=== PATIENT | female | born 2000 | race Caucasian/White ===

== ENCOUNTER 2018-09-08 18:00 | Emergency (ER) | payer BC ==
[~2018-09-08] VITALS: Ht 172.7 cm; Wt 95.3 kg
[2018-09-08 18:51] VITALS: BP 141/97
--- NOTE | 2018-09-08 20:07 | RAD ---
Left breast ultrasound: Reason for examination: Lateral left breast pain extending into the axilla. Left whole breast ultrasound including evaluation of all 4 quadrants and the retroareolar and axillary regions of the left breast was performed. No cystic or solid nodules are seen. In the area of clinical concern laterally there was no focal abnormality evident. No abnormal appearing lymph nodes are seen in the axilla. IMPRESSION: No focal abnormalities evident in the left breast. BI-RADS Category 1: Negative. "Our facility is accredited by the [employer] Mammography [employer]." Electronically signed by: Tori Dunbar MD (09/08/2018 8:03 PM) [facility]
--- NOTE | 2018-09-08 20:58 | PHYS DOC ---
Past Medical History Past Medical History: No Pertinent History Past Surgical History: No Surgical History Alcohol Use: None Drug Use: None Adult General Chief Complaint Chief Complaint: OTHER COMPLAINTS HPI HPI Patient is a 18 year old [f__sex] who presents with [] Review of Systems Review of Systems Constitutional: Denies fever or chills [] Eyes: Denies change in visual acuity, redness, or eye pain [] HENT: Denies nasal congestion or sore throat [] Respiratory: Denies cough or shortness of breath [] Cardiovascular: No additional information not addressed in HPI [] GI: Denies abdominal pain, nausea, vomiting, bloody stools or diarrhea [] : Denies dysuria or hematuria [] Musculoskeletal: Denies back pain or joint pain [] Integument: Denies rash or skin lesions [] Neurologic: Denies headache, focal weakness or sensory changes [] Endocrine: Denies polyuria or polydipsia [] All other systems were reviewed and found to be within normal limits, except as documented in this note. Physical Exam Physical Exam Constitutional: Well developed, well nourished, no acute distress, non-toxic appearance. [] HENT: Normocephalic, atraumatic, bilateral external ears normal, oropharynx moist, no oral exudates, nose normal. [] Eyes: PERRLA, EOMI, conjunctiva normal, no discharge. [] Neck: Normal range of motion, no tenderness, supple, no stridor. [] Cardiovascular:Heart rate regular rhythm, no murmur [] Lungs & Thorax: Bilateral breath sounds clear to auscultation [] Abdomen: Bowel sounds normal, soft, no tenderness, no masses, no pulsatile masses. [] Skin: Warm, dry, no erythema, no rash. [] Back: No tenderness, no CVA tenderness. [] Extremities: No tenderness, no cyanosis, no clubbing, ROM intact, no edema. [] Neurologic: Alert and oriented X 3, normal motor function, normal sensory function, no focal deficits noted. [] Psychologic: Affect normal, judgement normal, mood normal. [] Current Patient Data Vital Signs Vital Signs Date Time Temp Pulse Resp B/P (MAP) Pulse Ox O2 Delivery O2 Flow Rate FiO2 09/08/18 18:51 98.8 99 20 141/97 (112) 99 Room Air 98.8 Lab Values Laboratory Tests Test 09/08/18 19:43 POC Urine HCG, Qualitative Hcg negative (Negative) EKG EKG [] Radiology/Procedures Radiology/Procedures [] Course & Med Decision Making Course & Med Decision Making Pertinent Labs and Imaging studies reviewed. (See chart for details) [] Dragon Disclaimer Dragon Disclaimer This electronic medical record was generated, in whole or in part, using a voice recognition dictation system. Departure Departure Impression: Primary Impression: Skin infection Disposition: HOME, SELF-CARE Condition: STABLE Referrals: UNKNOWN PCP NAME (PCP) Patient Instructions: Breast Self-Exam, [id number] Additional Instructions: Follow-up with your primary care provider for a complete breast exam. Schedule a mammogram to establish your baseline. ROSINA ALEMAN APRN Sep 08, 2018 20:58
== END 2018-09-08 21:04 | disposition home or self-care (01) ==
LOC: ER 18:00
DX: L08.89 Other specified local infections of the skin and subcutaneous tissue (principal); N64.4 Mastodynia
CPT/HCPCS: 76641; 81025; 99284